=== PATIENT | female | born 1990 | race Caucasian/White ===

== ENCOUNTER 2017-09-08 17:48 | Emergency (ER) | payer OTHER, SELFPAY ==
[2017-09-08 17:50] VITALS: BP 152/112; PULSE 116; RESP 17; TEMP 35.9; O2SAT 97; BMI 41.6
--- NOTE | 2017-09-08 18:10 | CT_ITS ---
STUDY: CT ABDOMEN AND PELVIS WITHOUT CONTRAST REASON FOR EXAM: Female, 27 years old. Right-sided rib pain. RADIATION DOSAGE (If Supplied By Facility): CTDIvol = ( 19.23 ) mGy, DLP = ( 1054.45 ) mGycm TECHNIQUE: Transaxial images were obtained from the dome of the diaphragm to the symphysis pubis without oral contrast, and without intravenous contrast. Sagittal and coronal images were reconstructed. Individualized dose optimization techniques were used for this CT. COMPARISON: None. FINDINGS: The visualized lung bases are unremarkable. The visualized portions of the heart are within normal limits. Normal liver. Normal gallbladder and extrahepatic biliary system. Normal spleen. Normal pancreas. Normal bilateral adrenal glands. Normal bilateral ureters. Normal right kidney. Normal left kidney. Normal visualized stomach. Normal small intestine. Normal colon. The appendix is visualized and appears normal. Normal abdominal aorta. Normal inferior vena cava. Normal retroperitoneum. Normal urinary bladder. Normal uterus and ovaries. No pelvic lymphadenopathy. No free air or free fluid is seen within the peritoneal cavity. Normal abdominal wall. Normal osseous structures. There is no evidence of acute rib fracture or other abnormality. CT/Abdomen/Pelvis without Cont IMPRESSION: Normal unenhanced CT of the abdomen and pelvis. Electronically Signed: Trevor Cronin DO at 19:43 EST Tel [phone], Service support ,
[2017-09-08] MEDS: Ondansetron 4 MG/2 ML Vial IV (18:26)
[2017-09-08] MEDS: 0.9% Normal Saline 1,000 ML 1000 ML IV (18:26)
[2017-09-08 18:33] LABS: Absolute Lymphocyte Count 1.47 X10^3/ul (0.83-4.51); Absolute Neutrophil Count 4.8 X10^3/uL (2.0-7.7); Basophil# 0.01 X10^3/uL; Basophil% 0.1 % (0-1); Eosinophil# 0.02 X10^3/uL; Eosinophils% 0.3 % (0-5); Hematocrit 42.1 % (37-47); Hemoglobin 14.3 g/dl (12.0-15.0); Lymphocyte # 1.47 X10^3/ul (4.0); Lymphocyte % 21.4 % (19-41); Mean Corpuscular Volume 88.3 fL (81-99); Mean Platelet Vol. 9.2 fl (6.2-12.0); Monocyte# 0.52 X10^3/uL; Monocyte% 7.6 % (0-10); Neutrophil # 4.84 X10^3/uL (2.7-7.7); Neutrophil % 70.5 % (47-70); Platelet Count 320 K/mm3 (150-450); RBC Distribution Width CV 12.3 % (11.6-14.6); RBC Distribution Width SD 39.8 fl (35.1-43.9); Red Blood Count 4.77 M/mm3 (4.2-5.4); White Blood Count 6.9 K/mm3 (4.4-11.0)
[2017-09-08 18:37] LABS: POSITIVE COUNT NO; POSITIVE DIFFERENTIAL NO; POSITIVE MORPHOLOGY NO
[2017-09-08 19:02] LABS: AST(SGOT) 322 U/L (15-37); Alanine Aminotransfer ALT/SGPT 217 U/L (13-56); Albumin, Serum 3.8 g/dL (3.2-5.0); Alkaline Phosphatase 93 U/L (45-117); Anion Gap 7 (5-15); BUN 8 mg/dL (7-18); BUN/Creat Ratio 10.5 RATIO (10-20); Calcium,Total 8.7 mg/dL (8.5-10.1); Chloride 109 mmol/L (98-107); Creatinine, Serum 0.76 mg/dL (0.55-1.02); EST Glomerular Filtration Rate 98 mL/min (>60); Est Glom Filt Rate - Afr Amer 119 mL/min (>60); Estimated Creatinine Clearance 93.61 ml/min; Globulin 3.6 g/dL (2.2-4.2); Glucose 93 mg/dL (74-106); Lipase 63 U/L (73-393); Potassium 3.6 mmol/L (3.5-5.1); Protein, Total 7.4 g/dL (6.4-8.2); Sodium Level 140 mmol/L (136-145)
[2017-09-08 19:09] LABS: Pregnancy, Serum, hCG Quali. NEGATIVE Negative (0-9 Nonpreg)
[2017-09-08 19:11] LABS: Red Blood Cells-Urine 0 SEEN /hpf (0-5)
[2017-09-08 19:13] LABS: Color, Urine Amber (Yellow); Glucose, Dipstick Normal (Normal); Ketone-Dipstick 5 mg/dl (Negative); Leukocyte Esterase-Dipstick 25 /ul (Negative); Nitrite-Dipstick Negative (Negative); Occult Blood-Urine Negative /ul (Negative); Protein-Dipstick 15 mg/dl (Negative); Urine Clarity Cloudy (Clear); Urine Urobilinogen 8 mg/dl (Normal)
[2017-09-08 19:27] LABS: Urine Bilirubin Dipstick 3 mg/dL (Negative)
[2017-09-08 19:29] LABS: Mucous, Urine 1+ /hpf (<or=2+)
[2017-09-08 19:30] LABS: Squamous Epithelial Cells - UA 5-10 SEEN /hpf (5-10)
[2017-09-08 19:32] LABS: Bacteria RARE /hpf (None Seen); Transitional Epithelial - Ur 5-10 SEEN /hpf (0-5)
[2017-09-08 19:33] LABS: White Blood Cells 0-5 SEEN /hpf (0-5)
[2017-09-08] MEDS: Ketorolac 30 MG/ML Syringe IV (19:42)
[2017-09-08 20:39] VITALS: BP 119/66; PULSE 83; RESP 18; O2SAT 100
--- NOTE | 2017-09-08 21:17 | ED.DCSUM_ITS ---
- ER Visit Summary Date of Service: 09/08/17 Chief Complaint: Right flank pain History of Present Illness: The patient is a [address] Lozada. She reports that she has right flank pain that began at 4:00 this morning. Is gradually gotten worse. Is a constant sharp pain. Is 910 at worst and 710 currently. Is worsened by movement, food, or vomiting. She relieved by a hot bathtub. She reports she is vomited 6 times. No blood or emesis. Her last bowel was yesterday. She has had no melena or hematochezia. No dysuria or frequency. Last menstrual period was 3 weeks ago. She denies any history of fatty food or spicy food intolerance. Patient reports that she had a similar episode approximately 4 years ago and had a workup for her gallbladder. She reports that she had an ultrasound that was unremarkable and a HIDA scan that seemed fine. Physical Examination: Vitals: Stable. Afebrile. General: Well-nourished and well-developed. Head: Normocephalic atraumatic. Neck: Supple, no lymphadenopathy. No JVD. Nontender. Cardiovascular: Regular rate and rhythm. No murmurs. Respiratory: No respiratory distress. Clear to auscultation bilaterally. Abdominal: Soft, severe right upper quadrant tenderness to palpation, nondistended, normal bowel sounds. No guarding, rebound, or peritoneal signs. Back: Severe right CVA tenderness. Extremities: Nontender, no edema. Skin: Normal color, no rash. Neurologic: Alert and oriented ?3. Cranial nerves II through XII are intact. Normal strength and sensation. Psych: Normal affect. Test Results: CBC is remarkable for segment neutrophils of 71. Chem-7 is more for chloride 109. LFTs marked for total bili of 2.0, direct bili 1.3, ALT of 217, AST of 322 with a normal alkaline phosphatase at 93. Lipase is normal. Urine is negative. test is negative. CT flank shows a normal gallbladder normal appendix. Acute hepatitis panel was sent. Emergency Department Course and Treatment: Patient was treated with morphine and Zofran IV. She is resting comfortably. Treatment Plan: I offered to contact patient's primary care physician. She did not want to wait for this to happen. She will be discharged with Zofran. Instructed to follow-up with him for results of hepatitis panel. Clinically this is not biliary in nature by history or exam. I feel that she is a suitable candidate for further outpatient evaluation. Disposition: To home in improved and stable condition. Impression: 1. Hepatitis. This note was generated with [employer] dictation software. It may contain incorrect words, spelling, and punctuation that were not noted in review of the chart prior to signing ED Disposition - Plan for ED Patient: Disposition: Home or Assisted Living Chief Complaint: Abd Pain Instructions: ED Hepatitis Cause Unkn Test Pen Prescriptions: Ondansetron [Zofran Odt] 4 mg PO Q8H PRN PRN #10 tablet PRN Reason: Nausea Referrals: Siri Lozada [Primary Care Provider] - 2 Days
[2017-09-08] MEDS: oxyCODONE 5 MG Tablet PO (21:42)
[2017-09-08] MEDS: Ondansetron ODT 4 MG Tablet PO (21:42)
[2017-09-08 21:44] VITALS: PULSE 80; RESP 18; O2SAT 99
[2017-09-10 05:07] LABS: HEPATITIS B SURFACE AG Negative (Negative); Hepatitis A IgM Antibody Negative (Negative); Hepatitis B Core AB IgM Negative (Negative)
[2017-09-10 09:31] LABS: Hep C Antibodies <0.1 s/co ratio (0.0-0.9)
== END 2017-09-08 21:45 | disposition home or self-care (01) ==
PROVIDERS: Emergency Provider Emergency Medicine; Family Provider Family Medicine; PCP Family Medicine
DX: K75.9 Inflammatory liver disease, unspecified (principal); Z72.0 Tobacco use
CPT/HCPCS: 74176; 80048; 80074; 80076; 81001; 83690; 84703; 85025; 96361; 96374; 96375; 99283; J7030; A4216; J2405

== ENCOUNTER 2017-10-09 14:46 | Emergency (ER) | payer OTHER, SELFPAY ==
[2017-10-09 14:47] VITALS: BP 152/95; PULSE 99; RESP 16; TEMP 36.9; O2SAT 98; BMI 40.7
--- NOTE | 2017-10-09 15:15 | US_ITS ---
STUDY: ULTRASOUND GALLBLADDER REASON FOR VISIT: Female, 27 years old. Right upper quadrant pain TECHNIQUE: Ultrasound evaluation of the gallbladder was performed with real-time and static dejesus-scale imaging. TECHNICAL QUALITY: Limited. Examination limited by bowel gas. COMPARISON: None. FINDINGS: Gallbladder: Normal distended gallbladder. The gallbladder wall measures 2 mm. There is a negative sonographic Baez's sign. There is no pericholecystic fluid. There are no gallstones. There is a 6 mm probable polyp at the gallbladder neck. Common Bile Duct (C.B.D.): The common bile duct measures 4 mm. US/Gallbladder IMPRESSION: No definite acute abnormality. Probable gallbladder polyp. Electronically Signed: Sean Fonseca MD at 16:38 EDT , Service support ,
--- NOTE | 2017-10-09 15:17 | ED.VISSUMM ---
- ER Visit Summary Date of Service: 10/09/17 Chief Complaint: Abdominal pain History of Present Illness: The patient is a 27 F presenting with abdominal pain ?3 days. She has had nausea vomiting. She was seen by her primary care physician today and she was given Zofran in the office and referred to GI. 1 month ago she was found to have elevated liver enzymes. She has been unable to see GI as of yet. She has had decreased appetite today. Denies fever, chest pain, shortness of breath. She states that after her liver enzymes were found to be high she had a itchy rash for the past month. She has been scratching frequently. Rash is mainly on her trunk. Physical Examination: Vitals are stable. Patient is afebrile. Alert no acute distress. HEENT exam is unremarkable. Neck is supple. Lungs are clear and equal bilaterally. Heart is regular rate and rhythm. Abdomen is soft right upper quadrant tenderness, no rebound or guarding Extremities are unremarkable. Skin is warm and dry. Diffuse maculopapular rash with excoriations on trunk No focal neurologic deficit. Remainder of exam is unremarkable. Emergency Department Course and Treatment: Patient is given morphine, Zofran with improvement. CBC, chemistries unremarkable. Liver lipase are normal. HCG negative. Ultrasound gallbladder shows no acute abnormality, probable gallbladder polyp. Patient states the rash is improving but she has some areas with surrounding erythema. She is given Keflex and Bactrim. She is advised to follow-up with her primary care physician and her GI physician. Advised return to ED for worsening complaints. Disposition: Discharge home Impression: Abdominal pain, rash This note was generated with [employer] dictation software. It may contain incorrect words, spelling, and punctuation that were not noted in review of the chart prior to signing ED Disposition - Plan for ED Patient: Chief Complaint: Abd Pain Referrals: Siri Lozada [NON-STAFF] -
[2017-10-09] MEDS: 0.9% Normal Saline 1,000 ML 1000 ML IV (15:29)
[2017-10-09] MEDS: Ondansetron 4 MG/2 ML Vial IV (15:38)
[2017-10-09] MEDS: Morphine 4 MG/ML Syringe IV (15:38)
[2017-10-09 15:54] LABS: Absolute Lymphocyte Count 2.66 X10^3/ul (0.83-4.51); Absolute Neutrophil Count 5.3 X10^3/uL (2.0-7.7); Basophil# 0.01 X10^3/uL; Basophil% 0.1 % (0-1); Eosinophil# 0.04 X10^3/uL; Eosinophils% 0.5 % (0-5); Hematocrit 43.3 % (37-47); Hemoglobin 14.5 g/dl (12.0-15.0); Lymphocyte # 2.66 X10^3/ul (4.0); Lymphocyte % 31.7 % (19-41); Mean Corp Hgb Conc 33.5 g/gl (32-36); Mean Corpuscular Hgb 30.3 pg (27.0-32.0); Mean Corpuscular Volume 90.6 fL (81-99); Mean Platelet Vol. 9.1 fl (6.2-12.0); Monocyte# 0.42 X10^3/uL; Neutrophil # 5.26 X10^3/uL (2.7-7.7); Neutrophil % 62.6 % (47-70); POSITIVE COUNT NO; POSITIVE DIFFERENTIAL NO; POSITIVE MORPHOLOGY NO; Platelet Count 323 K/mm3 (150-450); RBC Distribution Width CV 12.8 % (11.6-14.6); RBC Distribution Width SD 42.2 fl (35.1-43.9); Red Blood Count 4.78 M/mm3 (4.2-5.4); White Blood Count 8.4 K/mm3 (4.4-11.0)
[2017-10-09 16:06] LABS: AST(SGOT) 11 U/L (15-37); Alanine Aminotransfer ALT/SGPT 13 U/L (13-56); Albumin, Serum 3.9 g/dL (3.2-5.0); Alkaline Phosphatase 54 U/L (45-117); Anion Gap 9 (5-15); BUN 13 mg/dL (7-18); BUN/Creat Ratio 17.1 RATIO (10-20); Bilirubin, Direct 0.09 mg/dL (0.00-0.30); Chloride 106 mmol/L (98-107); Creatinine, Serum 0.76 mg/dL (0.55-1.02); EST Glomerular Filtration Rate 98 mL/min (>60); Est Glom Filt Rate - Afr Amer 119 mL/min (>60); Estimated Creatinine Clearance 93.61 ml/min; Globulin 3.4 g/dL (2.2-4.2); Glucose 79 mg/dL (74-106); Lipase 42 U/L (73-393); Potassium 3.7 mmol/L (3.5-5.1); Protein, Total 7.3 g/dL (6.4-8.2); Sodium Level 139 mmol/L (136-145)
[2017-10-09 16:10] LABS: Pregnancy, Serum, hCG Quali. NEGATIVE Negative (0-9 Nonpreg)
[2017-10-09 16:51] VITALS: BP 148/70; PULSE 95; RESP 14; O2SAT 99
--- NOTE | 2017-10-09 16:52 | ED.DEP ---
ED Disposition - Plan for ED Patient: Chief Complaint: Abd Pain Instructions: ED Abdominal Pain Unkn Cause Prescriptions: Ondansetron [Zofran Odt] 4 mg PO Q8H PRN PRN #10 tablet PRN Reason: Nausea Clindamycin [Cleocin] 300 mg PO 4X/DAY #80 capsule Referrals: Siri Lozada [NON-STAFF] -
[2017-10-09 17:00] VITALS: BP 142/80; PULSE 94; RESP 14; O2SAT 99
== END 2017-10-09 17:06 | disposition home or self-care (01) ==
PROVIDERS: Emergency Provider Emergency Medicine
DX: R10.11 Right upper quadrant pain (principal); R21 Rash and other nonspecific skin eruption; Z72.0 Tobacco use
CPT/HCPCS: 76705; 80048; 80076; 83690; 84703; 85025; 96374; 96375; 99283; J7030; J2405